=== PATIENT | male | born 1950 | race African-American/Black ===

== ENCOUNTER 2019-08-10 17:42 | Inpatient (IN) | payer OTHER ==
[~2019-08-10] VITALS: Ht 190.5 cm; Wt 109.1 kg
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
[~2019-08-10 17:42] MED LIST: ASPIR 8181 MG PO; ATIVAN1 MG PO; CENTRUM SILVER1 EAC2 PO; CLARITIN10 MG PO; CONSTULOSE10 GM/15 M PO; HUMALOG100 UNIT/2 SUBQ; LANTUS100 UNIT/M SUBQ; LEVOTHYROXINE0.05 MG PO; LIPITOR40 MG PO; LOPRESSOR25 PO; NITROGLYCERIN0.4 MG SUBLING; OMEGA-31000 M1 PO; PEPCID20 MG PO; PREDNISONE 20 M20 MG PO; RISPERDAL50 MG/2 ML IM; RISPERIDONE ODT2 MG PO; SENEXON-S TABL1 EACH PO; TRAZODONE HCL50 MG PO; VITAMIN B-1100 M1 PO; ZYPREXA10 MG/VIAL IM
[2019-08-10 18:21] LABS: ABSOLUTE NEUTROPHILS 2.8 thou/uL (1.4-8.2); BASOPHILS 0.9 % (0.0-2.0); EOSINOPHILS 1.8 % (0.0-3.0); HEMATOCRIT 41.4 % (42.0-52.0); HEMOGLOBIN 13.6 gm/dL (14.0-18.0); LYMPHOCYTES 30.3 % (24.0-44.0); MCH 28.5 pg (26.0-34.0); MCV 86.6 fL (80.0-100.0); MONOCYTES 10.5 % (1.0-8.0); PLATELET COUNT 156 thou/uL (150-400); POLYS 56.5 % (36.0-66.0); RBC 4.78 mil/uL (4.50-6.00); RDW 14.9 % (10.5-14.5)
[2019-08-10 18:29] LABS: CALCIUM 8.4 mg/dL (8.5-10.1); CREATININE 1.1 mg/dL (0.7-1.3)
[2019-08-10 18:35] LABS: ALBUMIN 3.6 g/dL (3.4-5.0); TOTAL BILIRUBIN 0.4 mg/dL (0.2-1.0); TOTAL PROTEIN 7.2 g/dL (6.4-8.2)
[2019-08-10 18:42] LABS: URINE BILIRUBIN NEGATIVE (Negative); URINE BLOOD NEGATIVE (Negative); URINE CLARITY CLEAR; URINE COLOR YELLOW; URINE GLUCOSE-RANDOM* NEGATIVE (Negative); URINE KETONES NEGATIVE (Negative); URINE LEUKOCYTES-REFLEX NEGATIVE (Negative); URINE NITRITE-REFLEX NEGATIVE (Negative); URINE PROTEIN (DIPSTICK) NEGATIVE (Negative)
[2019-08-10 18:51] LABS: AMP/METHAMP Negative (Negative); BARBITURATES Negative (Negative); BENZODIAZEPINES Negative (Negative); COCAINE Negative (Negative); METHADONE Negative (Negative); OPIATES Negative (Negative); PCP Negative (Negative)
--- NOTE | 2019-08-10 19:41 | NUR ---
TALKED WITH [facility] FOR MORE INFORMATION REGARDING PT. TALKED WITH HOME RESTORATION SERVICE CLEANER AND HANDED PHONE TO AUTOMOBILE TAILLIGHT ASSEMBLER
[2019-08-10] MEDS ORDERED: AMARYL2 M1 PO (21:14)
[2019-08-10] MEDS ORDERED: PRAVASTATIN SOD20 MG PO (21:14)
[2019-08-10] MEDS ORDERED: ZOLOFT 50 MG TA50 M1 PO (21:15)
[2019-08-10] MEDS ORDERED: METFORMIN HCL500 M3 PO (21:15)
[2019-08-10] MEDS ORDERED: MUCINEX600 MG PO (21:16)
[2019-08-10] MEDS ORDERED: REMERON15 M2 PO (21:16)
--- NOTE | 2019-08-10 22:20 | NUR ---
MARIO FROM [facility] IN ROOM EVALUATION PT
--- NOTE | 2019-08-10 22:33 | NUR ---
AWAITING CALL FROM PATIENT'S PUBLIC SPONGE PACKER PRIOR TO ACCEPTING TO [facility]
[2019-08-11 00:25] VITALS: BP 166/82
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
[2019-08-11 03:40] VITALS: BP 160/84
[2019-08-11 06:40] LABS: CHOLESTEROL 89 mg/dL (<200); HDL CHOLESTEROL 35 mg/dL (>40); LDL CHOLESTEROL 45 mg/dL (<100); TC:HDL 2.5 Ratio (Not establshd); TRIGLYCERIDE 48 mg/dL (<150); VLDL 10 mg/dL (<40)
[2019-08-11 06:46] LABS: SERUM ASSESSMENT Clear
[2019-08-11 08:56] VITALS: BP 154/83
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
--- NOTE | 2019-08-11 09:34 | EKG ---
[facility] [place] [address] ELECTROCARDIOGRAM REPORT Name: JOLIE SNYDER Room #: 528B ADM IN M.R.#: [id number] Admission: 08/10/19 Attend Phys: Cayetano Park DO Discharge: Date of : 54 Report #: [id number] THIS REPORT FOR: cc: Ole Carreno MD, Dennis R MD Couchonnal, Luis F. MD ~ THIS REPORT FOR: //name// [facility] ED Test Date: 2019-08-10 Test Time: 18:56:46 Pat Name: JOLIE SNYDER Department: Room: 528B Gender: M Manufacturing Quality Technician: SAMEERA : 1950 Requested By: Tao Caballero Order Number: [id number] MD: Chun Coronel Measurements Intervals Slaughters Rate: 82 P: 41 OR: 170 QRS: 5 QRSD: 88 T: 40 QT: 381 QTc: 445 Interpretive Statements Sinus rhythm Atrial premature complexes Abnormal R-wave progression, early transition Compared to ECG 01/10/2016 00:55:33 Atrial premature complex(es) now present Poor R-wave progression no longer present T-wave abnormality no longer present Electronically Signed On 08-11-2019 9:32:30 CDT by Chun Coronel [email or web address] <ELECTRONICALLY SIGNED> By: Chun Coronel MD 08/11/19 0932 55 55 Chun Coronel MD /EPI
[2019-08-11 09:46] LABS: CALCIUM 8.8 mg/dL (8.5-10.1); CREATININE 1.1 mg/dL (0.7-1.3)
[2019-08-11 11:48] VITALS: BP 154/83
--- NOTE | 2019-08-11 17:33 | NUR ---
Patient attended group. Group was focused on identifying strengths. Patient was not able to make any significant contribution due to active delusions.
--- NOTE | 2019-08-11 19:21 | NUR ---
Care of patient jaimemd at 1915. Patient is sitting in day room. Cooperative with assessment, though very confused and oriented to self only. It is noted that his finger nails are long and jagged. This nurse trims nails while speaking to patient. Patient denies SI/HI. Unable to recall date, POTUS, place, or situation. Does state that he would like to eliminate all prejudice in the world. Verbalizes delusional thought content, stating that he is Mauri Colt and that his bodily fluids heal. BS, HS, and LS all WNL. Compliant with HS meds.
[2019-08-11 20:12] VITALS: BP 157/70
--- NOTE | 2019-08-11 20:20 | NUR ---
I introduced myself to Dakota. I asked him his name. He said his name is
[2019-08-12 05:38] LABS: GLYCOHEMOGLOBIN (HGB A1C) 7.1 % (4.8-5.6)
[2019-08-12 07:46] VITALS: BP 126/70
[2019-08-12 09:00] VITALS: BP 126/70
--- NOTE | 2019-08-12 09:54 | NUR ---
Left message with the SW at [facility] [phone] requesting a copy of patient's guardianship document.
--- NOTE | 2019-08-12 13:05 | NUR ---
Assumed care 0700. Denies SI/HI/AH/VH. Then mentioned at another time he was people he knew that were not there. He refused to take some of his AM meds, not giving a reason why-picking out certain pills to return to the nurse. He has been expectorating white copious amounts sputum that is frothy. There are times he seems to be observant and listening to possible voices. He is intent on observing the staff.
--- NOTE | 2019-08-12 16:05 | NUR ---
Patient unable to participate in group due to cognitive deficit.
[2019-08-12 20:30] VITALS: BP 141/72
--- NOTE | 2019-08-13 03:39 | NUR ---
ASSESSMENT: PT IS ALERT AND ORIENT TIMES 2. NOT ALERT TO SITUATION. DOES NOT WANT TO TAKE METFORMAIN BECAUSE IT MAKES HIM HAVE DIABETES; NOT METOPROLOL, IT GIVES HIM HIGH BLOOD PRESSURE; REFUSED TRAZADONE AND RISPERIDONE. IN SPITE OF THE ATTEMPTS TO TEACH PT ABOUT EACH MEDICAION, HE STILL REUFSED TO TAKE THESE MEDS. DID HAVE A LARGE BM THIS SHIFT. CLOGGED THE TOILET. PLANT OPPS NOTIFIED. SLEPT WELL DURING THE NIGHT. DENIED PAIN, SOB AND N/V. SLOW PROGRESS TOWARDS DC GOALS WILL CONTINUE TO MONITOR.
[2019-08-13 07:29] VITALS: BP 144/74
--- NOTE | 2019-08-13 09:45 | NUR ---
Assumed care at 0700. Patient denied pain and any health issues. He declined several meds including his meds for diabetes, HTN, antipsychotic, etc. See eMAR. He believes Loratidine is Ativan. He still has a cough though sputum has not been seen by this nurse yet today. He says he does not need all these meds.
--- NOTE | 2019-08-13 12:18 | NUR ---
HIRA called and left a VM with admissions requesting information about pt's meds and a report tht d/c may happen tue- . Hira FAXED updated notes to [facility]
--- NOTE | 2019-08-13 16:10 | NUR ---
Patient was selective on which meds to day he would take. He talked to Dr. Park about his meds. He suspiciously watches patients and staff in the dayroom. He frequently askes for a second meal tray-which he did for lunch and dinner. He does not initiate conversation with peers or staff. At times he appears to be responding to internal stimuli. He has furtive glances. Note the milieu has been very loud with people raising their voices/talking loud.
[2019-08-13 19:33] VITALS: BP 167/66
[2019-08-13 20:30] VITALS: BP 167/66
--- NOTE | 2019-08-14 01:12 | NUR ---
PATIENT WAS SITTING AT TABLE IN DINING ROOM THIS PAST EVENING WHEN I CAME ON TO SHIFT AT 1900. ON ASSESSMENT HE WAS CALM AND COOOPERATIVE. HE DENIED PAIN, SI/HI/AVH. HIS BILATERAL FEET HAVE DRY SKIN AND CALLOUS' ALONG SIDE OF FEET AND HEEL. LEFT GREATER THAN RIGHT. THIS NURSE WASHED PATIENT'S FEET WITH SOAP AND WATER AND DRIED THEM, APPLIED LOTION AND MOISTURIZER SKIN BARRIER TO BILATERAL FEET AT BEDTIME AND PLACED NONSLIP SOCKS BACK ON FEET. PATIENT REFUSED ALL BUT 3 OF HIS MEDS TONIGHT. HE TOOK METOPROLOL, SENNA AND MUCINEX. HE DOES NOT WANT TO TAKE RISPIRIODONE OR ANY PSYCH MEDS. DR ALEXANDER WAS NOTIFIED AND ORDER RECIEVED TO GIVE HALDOL 5MG AND BENADRYL 25MG IM STAT. SECURITY CALLED IN STANDYBY IF NEEDED. PATIENT WAS GIVEN THE INJECTION IN HIS RIGHT DELTOID AT 2145 WITH OUT INCIDENT. HE WAS CALM AND COOPERATIVE AND WENT BACK TO SLEEP. PATIENT'S LUNG SOUNDS WERE CLEAR BUT DIMINISHED IN BASES. TRACE EDEMA IN BILATERAL ANKLES. NO SOB. PATIENT DID HAVE HS SNACK. HE HAD WANTED ANOTHER ICECREAM I CRUSHED HIS MEDS UNKNOWINGLY IN THEM TO SEE IF HE WOULD TAKE THEM THAT WAY BEFORE GETTING ORDER FROM DR ALEXANDER BUT PATIENT DID NOT WANT TO EAT ONCE IT WAS BROUGHT TO HIM BECAUSE HE WAS WANTING TO SLEEP INSTEAD. PT IS SLEEPING AT THIS TIME. BED IN LOW POSITION. HE HAS BEEN APPROPRIATE TONIGHT AND NO SIGNS OF DELUSIONS. WAS REPORTED FROM DAY SHIFT THAT PATIENT THOUGHT HE WAS TREY AKILAH BUT HE HAS NOT MENTIONED THIS UPON TALKING WITH HIM TONIGHT. CONTINUING TO MONITOR.
[2019-08-14 07:57] VITALS: BP 121/67
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
[2019-08-14 19:52] VITALS: BP 122/57
--- NOTE | 2019-08-15 05:17 | NUR ---
Assumed care of pt @ 1900. Pt calm et cooperative with [facility] this shift. Took medications whole without difficulty. Ambulates the halls ad pravin with steady gait. Socialized with peers in dayroom until HS. VSWNL. Health assessment with no abnormalities noted at present time. Denies SI/HI. Independent with toileting et ADLs. Pt has slight fixation on onion rings at present time et has asked several staff members to get him some onion rings. Currently resting in bed with eyes closed. Will continue to monitor per protocol.
[2019-08-15 07:50] VITALS: BP 146/77
[2019-08-15 14:13] VITALS: BP 146/77
--- NOTE | 2019-08-15 14:13 | NUR ---
SW sent updates to [facility].
--- NOTE | 2019-08-15 15:28 | NUR ---
ASSUMED CARE AT 0700 THIS MORNING. HE WAS DRESSED AND ON THE UNIT. HE WAS PLEASANT WITH THIS STAFF. HE WAS NOTED SOMETIME THIS MORNING POUNDING HIS FIST ON A CHAIR AND BEING IRRITABLE. THIS RN WENT AND TALKED TO THE PATIENT. HE DENIED BEING IRRITABLE. HE WAS INFORMED HE COULD TAKE A TIME OUT IN HIS ROOM OR ASK THIS RN FOR A PRN MEDICATION IF NEEDED. HE STATED HE WOULD DO SO, BUT NEVER DID. NO ACTING OUT BEHAVIORS NOTED FROM HIM TO THIS POINT TODAY. HE DID SPEND SOME TIME RESTING IN HIS ROOM THIS AFTERNOON. WAS ON THE UNIT FOR MORNING GROUP AND WAS NOTED TO BE DOING SOME EXERCISING WITH THE GROUP (PART OF THE TIME).
[2019-08-15 19:45] VITALS: BP 152/72
[2019-08-15 21:45] VITALS: BP 152/72
--- NOTE | 2019-08-15 22:54 | NUR ---
PATIENT REFUSED HS MEDS TONIGHT. HE DID HAVE AN HS SNACK OF DIABETIC SHORTBREAD COOKIES. HE HAS BEEN DELUSIONAL. WHEN ASKED WHERE HE WAS BORN HE REPLIED, [place] [place] I ASKED HIM HIS FULL NAME AND HE ASKED, MY GIVEN NAME OR MY REAL NAME? HE STATES HIS REAL NAME IS TREY ISBELL. PT WAS GIVEN [id number] IM IN R DELTOID D/T REFUSING MEDS. I WASHED PATIENT'S FEET WITH SOAP AND WATER AND RINSED THEM AND DRIED THEM. APPLIED LOTION AND MOISTURIZING BARRIER CREAM TO FEET D/T DRY SKIN/CALLOUS. SOCKS PLACED ON FEET. PT BACK UP TO DINING ROOM AT 2230 UNABLE TO SLEEP. ASKED IF HE WOULD LIKE ME TO GET HIS TRAZADONE FOR HIM TO TAKE TO HELP SLEEP. HE REFUSED. PATIENT SITTING UPIN DINING ROOM NOW. PATIENT HAS BEEN CALM TONIGHT BUT AGITATED ABOUT HIS MEDS. CONTINUING TO MONITOR.
--- NOTE | 2019-08-16 00:43 | NUR ---
PATIENT STILL UP IN DINING ROOM. PATIENT FINALLY DECIDED HE WOULD TAKE TRAZADONE WHEN I TOLD HIM I HAVE USED IT TO SLEEP BEFORE. HE IS PARANOID WITH HIS MEDS AND ALSO HIS BELONGINGS. HE KEEPS HIS DOOR SHUT TO HIS ROOM BECAUSE HE AT TIMES HAS THOUGHT PEOPLE ARE ENTERING IT. PT TOOK THE TRAZADONE 50MG PO AND JUST NOW HEADED TO BED. HE REFUSED AGAIN TO LET ME CHECK HIS ACCUCHECK. WILL CONTINUE TO MONITOR.
--- NOTE | 2019-08-16 02:57 | NUR ---
PATIENT BACK UP TO DINING ROOM AT 0130 UNABLE TO SLEEP. HE REFUSES ANY MORE MEDICATION. HE IS SITTING IN DINING ROOM VISITING OFF AND ON WITH STAFF. TV IS OFF. PATIENT IS CALM. HE DENIES PAIN. CONTINUING TO MONITOR.
--- NOTE | 2019-08-16 04:55 | NUR ---
PATIENT STILL UP IN DINING ROOM. WIDE AWAKE. HE CAME TO NURSE STATION TO ASK FOR A BANANA. I TOLD HIM I DID NOT HAVE ONE. HE STATES HE IS HUNGRY. I TOLD HIM HE WOULD HAVE TO WAIT FOR BREAKFAST. HE IS NOT SHOWING SIGNS OF LOW BLOOD SUGAR. HE REFUSES TO LET ME CHECK HIS SUGAR. HE REFUSES HIS MEDICATIONS AND DENIES THAT HE IS DIABETIC EVEN THOUGH HE HAS HAD SOME HIGHER GLUCOSE READINGS. I TRIED TO EXPLAIN THAT IF HIS BLOOD SUGAR IS HIGH THAT HE COULD BE HUNGRY FROM THAT AND THAT IS WHY IT'S IMPORTANT TO TAKE HIS METFORMIN. HE STATES HE DOESN'T NEED IT BECAUSE HE'S NOT DIABETIC. I SUGGESTED THE PATIENT DRINK SOME ICE WATER OR CHOMP ON SOME ICE FOR NOW. HE STATES THAT HE WOULD GET COLD IF HE HAD ICE. I TOLD HIM I WOULD GET HIM A BLANKET IF HE NEEDED IT OR HE COULD JUST DRINK WATER WITHOUT ICE. PATIENT JUST SMILED AND LAUGHED AND THEN WENT AND SAT IN DINING ROOM. HE IS BEING CALM AT THIS TIME.
[2019-08-16 07:59] VITALS: BP 137/73
--- NOTE | 2019-08-16 11:17 | NUR ---
Consult received for pt c/o increased hunger. Hx diabetes, A1C 7.1 and on metformin and glimerpiride. BMI 29.6. Pt requesting more food. Obtained food preferences, will offer double vegetable portions, and increased caloric level of diet to 2000 which is more appropriate for estimated nutrition needs. Otherwise low nutrition risk
--- NOTE | 2019-08-16 13:30 | NUR ---
HIRA spoke with [place] at [facility] and provided an update. Hira then faxed an update and reported that pt is expected to d/c 08/21 provided he continues to take his medicaitions and not have IMs'
--- NOTE | 2019-08-16 17:57 | NUR ---
Ambulating with regular, steady gait. Alert and orientated X4. Calm and cooperative. Denies SI/HI. Consented to fingerstick for BG but then stated that he wasn't going to take his AM meds. Meds seperated. He took vitamins and lactulose and refused rest of meds. Reapproached with Fish Oil capsule and refused meds and he took fish oil but not rest of meds. Dr. Park notified. Haldol 5 mg IM per R deltoid per order. Pt. did take 1700 Metformin. Participating in groups with no aggressive behaviors today. Currently in day room with peers. Breath sounds clear t/o. Reg HR auscultated. Color pink with brisk capillary refill and palpable peripheral pulses. Independent with voiding. Active bowel sounds over soft, rounded abdomen.
--- NOTE | 2019-08-17 05:49 | NUR ---
Assumed care of pt @ 1900. Pt calm et cooperative most of shift. Pt refused HS medications but did allow blood sugar check this shift. Ambulates the halls ad pravin with steady gait. Isolated in room in bed with eyes closed most of shift. VSWNL. Health assessment with no abnormalities noted at present time. Denies SI/HI. Currently resting in bed with eyes closed. Will continue to monitor per protocol.
[2019-08-17 07:20] VITALS: BP 150/65
--- NOTE | 2019-08-17 11:45 | NUR ---
RT Progress Note- Dakota has participated in all recreational therapy groups on the unit. He puts forth decent effort though he has some interesting flight of ideas and themes to his contributions. He is not physically or verbally aggressive during social interactions and is friendly with peers.
[2019-08-17 13:24] VITALS: BP 150/65
--- NOTE | 2019-08-17 15:32 | NUR ---
ASSUMED CARE AT 0700 THIS MORNING. PT. WAS DRESSED AND ON THE UNIT. HE HAS BEEN IN THE MILIEU MOST OF THE DAY. 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 HE SITS QUIETLY, INTERACTING SELDOM WITH ANYONE. HE ONLY TALKS TO STAFF/PEERS UPON APPROACH ONLY. ANSWERS IN SHORT ONE OR TWO WORD ANSWERS ONLY. EATING WELL. TOOK MORNING MEDICATIONS WITHOUT PROBLEMS. SITS IN ON GROUPS WITH VERY LITTLE PARTICIPATION. HIS MOOD IS BLAND, DEPRESSED IN APPEARANCE.
[2019-08-17 19:44] VITALS: BP 134/65
[2019-08-18 05:37] VITALS: BP 134/65
[2019-08-18 06:17] LABS: ABSOLUTE NEUTROPHILS 2.7 thou/uL (1.4-8.2); EOSINOPHILS 2.2 % (0.0-3.0); HEMATOCRIT 41.3 % (42.0-52.0); HEMOGLOBIN 13.8 gm/dL (14.0-18.0); LYMPHOCYTES 37.5 % (24.0-44.0); MCH 28.6 pg (26.0-34.0); MCHC 33.4 g/dL (28.0-37.0); MCV 85.7 fL (80.0-100.0); MONOCYTES 10.1 % (1.0-8.0); PLATELET COUNT 151 thou/uL (150-400); POLYS 49.2 % (36.0-66.0); RBC 4.82 mil/uL (4.50-6.00); RDW 14.4 % (10.5-14.5); WBC 5.5 thou/uL (4.0-11.0)
[2019-08-18 06:42] LABS: CALCIUM 8.4 mg/dL (8.5-10.1); CREATININE 1.1 mg/dL (0.7-1.3); MAGNESIUM 1.7 mg/dL (1.8-2.4); PHOSPHORUS 3.5 mg/dL (2.5-4.9); POTASSIUM 4.3 mmol/L (3.5-5.1)
[2019-08-18 19:00] VITALS: BP 130/52
--- NOTE | 2019-08-18 19:15 | NUR ---
Care of patient assumed at 1915. Patient is lying in bed. Cooperative with assessment. Oriented to person and place. When corrected on date, patient becomes suspicious and says "come on, I know better than that." HS,BS normal. LS findings are stridor bilaterally, clearing up after deep breathe and cough exercise. Denies SI/HI. Denies AH/VH, but is often seen attending to internal stimuli. Attempts to refuse Oxycarbapine at HS meds, but returns Senna instead. When pointed out patient takes Senna. Denies pain initially, then complains of a headache during med pass. APAP given.
[2019-08-19 07:41] VITALS: BP 121/69
--- NOTE | 2019-08-19 07:44 | NUR ---
ASSUMED CARE AT 0700 THIS MORNING. PT. REFUSING TO HAVE HIS BLOOD SUGAR CHECKED. HIS UP, DRESSED AND IN THE DINING ROOM.
[2019-08-19 14:57] VITALS: BP 121/69
[2019-08-19 19:54] VITALS: BP 156/51
[2019-08-19 22:15] VITALS: BP 125/69
--- NOTE | 2019-08-19 22:24 | NUR ---
PATIENT HAS BEEN IN BED SLEEPING SINCE I CAME ON SHIFT AT 1900. PATIENT REFUSED MOLD LAMINATOR WHEN SHE CAME TO DO VITALS. I WAS ABLE TO TAKE HIS VITALS HE SLEPT THRU IT THOUGH HE REFUSED AT FIRST. VSS BP 125/69 P92, R18 02 96%. PT WAS SLEEPING WELL AND BECAME IRRITABLE WHEN AWAKENED. TRIED 3 TIMES TO HAVE PATIENT TAKE HIS HS MEDS. HE REFUSED. I EXPLAINED I WOULD HAVE TO GIVE HIM AN INJECTION IF HE DID NOT TAKE HIS MEDS. HE STILL REFUSED. I CALLED AND TOLD HIM PATIENT HAD BEEN SLEEPING WELL AND ASKED IF I COULD WAIT TO GIVE MEDS WHEN HE AWOKE. TOLD HIM HE WAS REFUSING AT THIS TIME BECAUSE HE DIDN'T WANT AWOKEN. DR ALEXANDER SAID TO GO AHEAD AND GIVE HIM THE HALDOL 5MG IM INJECTION. I TOOK Klaudia KARIMIRN IN WITH ME TO GIVE INJECTION. I HAD GIVEN HIM ONE MORE CHANCE TO TAKE THE PO MEDS OR THE INJECTION. AT FIRST HE GOT MAD AND STARTED TO SWING AT US WITH HIS ARM WHEN I WAS APPROACHING TO GIVE THE INJECTION. HE SAID, "I REFUSE BOTH! I DON'T NEED THEM OR WANT THEM." KEISHA SPOKE WITH HIM AND HE SAID HE WOULD TAKE THE INJECTION OF HALDOL IF I WOULD GIVE THE INJECTION. INJECTION OF HALDOL 5MG IM GIVEN IN LEFT DELTOID WITHOUT INCIDENT. PATIENT WENT BACK TO SLEEP. HE THEN CAME OUT OF ROOM AROUND 2220 AND IS SITTING UP IN DINING ROOM QUIETLY.
--- NOTE | 2019-08-20 01:36 | NUR ---
PATIENT SITTING UP IN DINING ROOM. HE CAME TO NURSE STATION AND TOLD THIS NURSE THAT HE HAD A HEADACHE. TYLENOL 650MG PO GIVEN AT 0125. PATIENT REMAINS SITTING IN DINING ROOM. PAIN IS ACHE IN BACK OF HEAD. REFUSES TO LET ME CHECK HIS BP. REFUSES TRAZADONE TO HELP RELAX AND HELP HIM SLEEP. PATIENT IS CALM AND DOES NOT APPEAR IN DISTRESS. PAIN LEVEL 4/10. CONTINUING TO MONITOR.
--- NOTE | 2019-08-20 03:21 | NUR ---
PATIENT SITTING UP IN DAYROOM STILL. HEADACHE PAIN HAS LESSENED TO A 2. WHEN ASKED BY ME IF HE WOULD LIKE FOR ME TO GET HIM SOME TRAZADONE OR SOMETHING TO RELAX HE STATES "NO. I DON'T WANT ANYTHING. I DON'T WANT TO SLEEP." PT GOT UP AND STARTED WALKING THE HALLS AND LOOKING OUT THE END OF OSEI WINDOWS. THIS IS OUT OF THE ORDINARY FOR THIS PATIENT. HE HAS BEEN WATCHING PEOPLE CAREFULLY WHEN THEY TALK IN THE DAYROOM AND OCCASIONALLY MUTTERS TO HIMSELF. PT WATCHING PEOPLE VERY CAREFULLY. HE IS SITTING ON COUCH AT THIS TIME AND APPEARS IF CALMING. HE JUST SAID SOMETHING TO THE STAFF AND IS LAUGHING.
--- NOTE | 2019-08-20 04:00 | NUR ---
PT BACK TO BED AND SLEEPING. WILL CONTINUE TO MONITOR.
--- NOTE | 2019-08-20 04:42 | NUR ---
PATIENT CAME TO THIS NURSE AND ASKED HOW MUCH IT COSTS TO STAY HERE EACH DAY? I TOLD HIM I HONESTLY DID NOT KNOW BUT THAT IT ALL GOES THRU INSURANCE. HE THEN STATED THAT HE IS SUPPOSED TO GET DOUBLE PORTIONS AND HE HAS NOT BEEN GIVEN DOUBLE PORTIONS. THE ORDERS STATES EXTRA VEGETABLES AT LUNCH AND DINNER AND EXTRA EGGS AT BREAKFAST. PATIENT BEGAN TO ARGUE THAT HE DID NOT WANT EVEN INSURANCE TO PAY FOR SOMETHING HE WAS NOT GETTING. I TOLD HIM THAT MAYBE HE WASN'T GETTING THE DOUBLE PORTIONS BECAUSE HE WAS NOT ALLOWING PEOPLE TO CHECK HIS BLOOD SUGAR AND HE WAS REFUSING MEDS SUCH HIS METFORMIN ALOT. HE SAID HE DIDN'T NEED THOSE THINGS AND HE IS NOT DIABETIC. I TOLD HIM I WOULD CHECK ON ORDER AND LET THE DAY NURSE KNOW SO THEY ARE AWARE. HE WENT DIRECTLY TO ANOTHER NURSE AND ASKED HER THE SAME QUESTION. BASICALLY SHE SAID THE SAME THING I DID ABOUT THE INSURANCE AND THAT WE WOULD CHECK WITH THE DOCTOR. PT WENT TO DAY ROOM AND IS SITTING ON THE COUCH. WILL CONTINUE TO MONITOR.
--- NOTE | 2019-08-20 06:30 | NUR ---
PT REFUSED HIS THYROID MEDS THIS MORNING. HE STATES IT CAUSES HIS THYROID TO SWELL. PT SITTING IN DINING ROOM AT A TABLE AT THIS TIME. PT WITH OCCASIONAL COUGH WITH PRODUCTIVE CLEAR SPUTUM. PT BLOWING NOSE THIS MORNING WITH CLEAR DRAINAGE.
[2019-08-20 07:38] VITALS: BP 131/96
--- NOTE | 2019-08-20 09:29 | NUR ---
WAS COOPERATIVE WITH TAKING MAJORITY OF AM MEDICATIONS-REFUSED B12 AND LACTULOSE OTHERWISE COMPLIENT WITH ALL. DENIES C/O PAIN/DISCOMFORT. ATE 100 PERCENT OF BREAKFAST-DENIES SI/SH. CONTINUES TO HAVE SOME MILD GRANDIOSITY AND HAS MULTIPLE REQUESTS FOR NURSING STAFF TO BRING HIM ITEMS I.E AT BREAKFAST "BRING ME ANOTHER MILK-I NEED A [place]" INDEPENDENCE ENCOURAGED. GAIT STEADY WITHOUT ASSISTIVE DEVICES.
--- NOTE | 2019-08-20 10:57 | NUR ---
Dr. Park attempted to reach patient's NH to determine when his last BOGGS was given and to confirm appointment he may have at [facility]. Dr. Park left a message with the DON asking him to call him or SW.
[2019-08-20 19:37] VITALS: BP 134/47
--- NOTE | 2019-08-20 22:16 | NUR ---
PATIENT SLEEPING IN BED WHEN I CAME ON SHIFT AT 1900. 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 HIS BP IS 134/47 PULSE 78. PATIENT WANTED TO BE LEFT ALONE TO SLEEP. LIMITED VISUAL ASSESSMENT DONE. LUNGS WERE CLEAR. NO COUGH SO FAR TONIGHT. PATIENT DID REFUSE HIS HS MEDS. HAD MALE RN TRY AND GIVE THEM AND HE REFUSED MEDS AND TOLD HIM HE WOULD HAVE TO HAVE INJECTION OF HALDOL THEN. INJECTION OF HALDOL 5MG IM GIVEN IN RIGHT DELTOID WITHOUT INCIDENT AND PATIENT BACK TO SLEEP. REFUSED HS SNACK. PATIENT AWOKE 2230 LAST NIGHT AND STAYED UP REST OF NIGHT. HE HAS NOT BEEN IRRITABLE OR AGRESSIVE WHEN AWOKEN TONIGHT HE WAS LAST NIGHT. ROUTINE ROUNDS TO ASSESS STATUS AND SAFETY OF PATIENT.
--- NOTE | 2019-08-20 22:48 | NUR ---
PATIENT AWOKE AND WALKED OUT TO DINING ROOM AND SAT AT A TABLE. HE STARTED COUGHING LOOSE PRODUCTIVE COUGH WITH CLEAR SPUTUM. HE AGREED AT THIS POINT THAT HE WOULD TAKE THE CEPHALEXIN 500MG PO FOR POSSIBLE BRONCHITIS. CEPHALEXIN 500MG PO GIVEN WITH WATER. PT STATES HIS LEGS ARE SORE BUT REFUSED ANY PRN MEDS FOR THIS. PT DENIES SI/HI/AVH. HE IS PLEASANT AND COOPERATIVE AT THIS POINT. PATIENT WAS UP FOR 20 MINUTES AND THEN WENT BACK TO BED. PATIENT IS RESTING IN BED AT THIS TIME.
[2019-08-20 22:53] VITALS: BP 134/47
--- NOTE | 2019-08-21 05:13 | NUR ---
PATIENT AWOKE AND CAME TO DINING ROOM AT 0500. HE WAS CALM. I ASKED HIM IF HE HAD SOME GOOD SLEEP AND HE RESPONDED THAT HE DEFINATELY DID. PATIENT SAT FOR A FEW MINUTES AND JUST WALKED BACK TO BED. PATIENT SHOWS NO SOB OR COUGHING. HE HAS ONLY HAD THE ONE PRODUCTIVE COUGH TONIGHT AFTER HE HAD FIRST AWOKEN EARLIER IN EVENING. PATIENT IS DENYING PAIN. HE IS A/0X4. .
--- NOTE | 2019-08-21 05:48 | NUR ---
PATIENT WAS UP TO THE BATHROOM AND HAD A BM THE WAS LARGE BROWN AND FORMED. PATIENT WENT BACK TO BED. HE DID HAVE A LOOSE COUGH WITH CLEAR PRODUCTIVE SPUTUM. PATIENT DENIES ANY BODYACHES OR PAIN. I WASHED PATIENT'S FEET WITH SOAP AND WATER AND APPLIED LOTION AND BARRIER CREAM. MASSAGED BOTH FEET AND LOWER LEGS. NO EDEMA. LEFT FOOT HAS MORE DRY SKIN ON OUTER BORDERS OF FEET. SKIN ON RIGHT FOOT IS SOFTENING AND NOT CALLOUSED. PATIENT THANKED ME FOR CARING FOR HIS FEET AND CONTINUES TO LAY IN BED RESTING. CONTINUING TO MONITOR.
[2019-08-21 07:44] VITALS: BP 124/81
[2019-08-21 20:14] VITALS: BP 113/75
[2019-08-21 20:45] VITALS: BP 113/75
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
--- NOTE | 2019-08-22 04:59 | NUR ---
PATIENT HAS BEEN UP TWICE IN NIGHT TO SIT FOR A FEW MINUTES IN DINING ROOM AND THEN BACK TO BE. PATIENT HAS ONLY BEEN COUGHED TWICE SO FAR TONIGHT. HIS LUNGS ARE CLEAR BUT DIMINISHED RIGHT GREATER THAN LEFT. COUGH IS PRODUCTIVE WITH CLEAR (OCCASIONAL) YELLOW SPUTUM. PATIENT DENIES BODY ACHES AND IS AFEBRILE. PATIENT IS SLEEPING IN BED IN COMFORTABLE POSITION AT THIS TIME.
[2019-08-22 07:40] VITALS: BP 130/61
--- NOTE | 2019-08-22 07:52 | EKG ---
[facility] Landon Kim [facility] [place] [address] ELECTROCARDIOGRAM REPORT Name: JOLIE SNYDER [facility] [id number] Admission: 08/10/19 Attend Phys: Cayetano Park DO Discharge: Date of : 54 Report #: [id number] THIS REPORT FOR: cc: Ole Carreno MD, Dennis R MD Lundgren,Alexx Collado MD [facility] ~ THIS REPORT FOR: //name// [facility] Test Date: 2019-08-21 Test Time: 11:13:07 Pat Name: JOLIE SNYDER [facility] Gender: M Warehouse Delivery Driver: DIANA : 1950 Requested By: Cayetano Park Order Number: [id number] MD: Alexx Bustos Measurements Intervals [place] Rate: 74 P: 48 CT: 187 QRS: 26 QRSD: 98 T: QT: 384 QTc: 426 Interpretive Statements Sinus rhythm Abnormal R-wave progression, early transition ST segment elevation, consider early repolarization Compared to ECG 08/10/2019 18:56:46 Atrial premature complex(es) no longer present Electronically Signed On 08-22-2019 7:51:02 CDT by Alexx Bustos [email or web address] <ELECTRONICALLY SIGNED> By: Alexx Bustos MD, FACC 08/22/19 [id number] Alexx Bustos MD, FAC /EPI
--- NOTE | 2019-08-22 09:47 | NUR ---
The lab called with COVID results; the COVID test was negative
[2019-08-22 12:28] VITALS: BP 130/61
--- NOTE | 2019-08-22 13:55 | NUR ---
YOHANNES faxed [facility] neg COVID 19 results to Sandy
[2019-08-22 19:32] VITALS: BP 156/56
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
[2019-08-23 07:15] VITALS: BP 120/65
[2019-08-23] MEDS ORDERED: KEFLEX500 M1 PO (09:36)
[2019-08-23] MEDS ORDERED: METOPROLOL TART25 MG PO (09:37)
[2019-08-23] MEDS ORDERED: OXCARBAZEPINE300 MG PO (09:38)
[2019-08-23] MEDS ORDERED: SENNA-TIME S T1 EACH PO (09:38)
[2019-08-23] MEDS ORDERED: METFORMIN HCL500 M1 PO (09:39)
--- NOTE | 2019-08-23 10:00 | NUR ---
0700 ASSUMED CARE OF PATIENT, PATIENT SITTING IN DAYROOM ATTABLE QUIETLY. PATIENT CALM AND COOPERATIVE, NO C/O PAIN. ATE BREAKFAST WELL AND COMMUNICATING WELL WITH OTHERS. MEDICATIONS GIVEN WHOLE WITH OUT DIFFICULTY. PATIENT REFUSE METFORMIN THIS AM AND REFUSED TO HAVE BLOOD SUGAR CHECKED. PATIENT AWARE OF DISCHARGE THIS AFTERNOON. WILL CONTINUE TO OBSERVE.
--- NOTE | 2019-08-23 10:00 | NUR ---
Nutrition: Pt was due for follow up today, but note is discharging back to facility. He has been on a 2000 kcal carb controlled diet ever since increased caloric level of diet was increased a week ago per pt hunger. Pt eating 100% of essentially every meal. Weight with minimal change in the last week. Up +3# from 237# on 08/10 to 240# on 08/17. Is prescribed the following vitamin/mineral supplements: folic acid, cholecalciferol, B12, and MVI w/ minerals. For DM pt is on metformin XR, glimepiride, but has been refusing accu checks in recent days per EMR review. No new nutrition needs at this time. Remains low risk.
--- NOTE | 2019-08-23 10:24 | NUR ---
YOHANNES made packet and left it on the chart. YOHANNES sent d/c summary and orders to [facility] [phone] (fax)
--- NOTE | 2019-08-23 10:54 | NUR ---
Hira reciived a call from the PA at [facility] confirming she recieved the d/c summary and giving permission for this pt to return to [facility]
--- NOTE | 2019-08-23 11:03 | NUR ---
DC INSTRUCTIONS GIVEN TO PATIENT, WILL NOTIFY GUARDIAN WELL.
--- NOTE | 2019-08-23 13:52 | NUR ---
Hira spoke with bari at [facility] and SW set up transportation for 2:30 pm. Sw reported this to nurses.
--- NOTE | 2019-08-23 14:16 | NUR ---
PATIENT DC AT 1400 VIA WC TO TRANSPORT VEHICLE ACCOMPANIED BY STAFF. PATIENT BELONGING IN HAND. PATIENT GUARDIAN NOTIFIED OF DC AND PHONE CONSENT OBTAINED THIS AM. PA- GUARDIAN REQUESTED DC INSTRUCTION AND DC SUMMARY, [employer] DEVELOPER FAXED TO PA OFFICE.
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
== END 2019-08-23 14:00 | DRG 885 ==
LOC: ER 17:42 → SBH 23:53
PROVIDERS: Internal Medicine; Nurse Practitioner Family; Physician Assistant; ADMIT Psychiatry & Neurology Psychiatry; ATTEND Psychiatry & Neurology Psychiatry
DX: F20.9 Schizophrenia, unspecified (principal); F03.91 Unspecified dementia, unspecified severity, with behavioral disturbance; F29 Unspecified psychosis not due to a substance or known physiological condition; I10 Essential (primary) hypertension; J40 Bronchitis, not specified as acute or chronic; E78.5 Hyperlipidemia, unspecified; E03.9 Hypothyroidism, unspecified; F17.210 Nicotine dependence, cigarettes, uncomplicated; E11.9 Type 2 diabetes mellitus without complications; Z03.818 Encounter for observation for suspected exposure to other biological agents ruled out; Z79.82 Long term (current) use of aspirin; Z79.899 Other long term (current) drug therapy; Z79.84 Long term (current) use of oral hypoglycemic drugs; Z88.8 Allergy status to other drugs, medicaments and biological substances
CPT/HCPCS: 10880